=== PATIENT | male | born 1945 | race Caucasian/White ===

== ENCOUNTER → 2016-09-20 | Outpatient (CLI) | payer MEDICARE, BC ==
[~2016-09-20] MED LIST: ASPIRIN325 M1 PO; CARVEDILOL6.25 MG PO; CRESTOR5 MG PO; DIABETA5 M1 PO; IMDUR-ER30 MG PO; INSULIN PEN1 DIS.NDL; METFORMIN HCL500 M1 PO; PRINIVIL40 MG PO; TYLENOL PM EX-S1 TA4; VICODIN PO
--- NOTE | ~2016-09-20 | CR7 ---
[facility] A Service of [facility] & [facility] RADIOLOGY TEXT RESULTS PATIENT: AVI TAYLOR LOCATION: [facility] : 47 UNIT #: [id number] AGE: [address]: Vlad Davila MD SEX: M ORDER DR: [id number] [facility] [address] [place], [place] [address] [id number] O MR#: [id number] Acc #: [id number] NAME: AVI TAYLOR : 1945 SEX: M STUDY DATE/TIME: 09/20/2016 9:06 UNIT: [facility] ROOM: STUDY DESCRIPTION: CR Abdomen Single AP View Attending Physician: Vlad Davila M.D. Referring Physician: Vlad Davila M.D. Ordering Physician: Vlad Davila M.D. Primary Care Physician: Mulugeta Mederos M.D. MEDICAL IMAGING REPORT This report is preliminary unless electronic signature is present EXAM Abdomen INDICATIONS Evaluate kidney stones COMPARISON STUDY 05/31/2016 FINDINGS Supine view of the abdomen was obtained. There appears to be a faint 4-5 mm stone in the lower pole of the left kidney. It may be fragmented as compared with the prior study. I believe there are 2 faint stones seen in the right kidney measuring 4-5 mm in diameter. These appear similar to the 1 seen previously. There is some type of metal object attached to a thin wire superimposed upon the spine, which is unchanged from the prior study. The bowel gas pattern is normal. IMPRESSION There seem to be 2 faint stones measuring 5 mm or less in the right kidney that are probably stable from the prior study. On the left side, there is only 1 stone suggested in the lower pole and it may be fragmented as compared with the prior study. Clinical correlation is recommended. Dictated by... Jagdish Herzog M.D. THIS IS AN ELECTRONICALLY VERIFIED REPORT Jagdish Herzog M.D. at 09/21/2016 7:09 AM FEL/to TD: 09/20/2016 16:48 JOB #: [id number] [facility] A Service of [facility] & [facility] RADIOLOGY TEXT RESULTS PATIENT: AVI TAYLOR LOCATION: [facility] #: [id number] : [birth year] UNIT #: [id number] AGE: [address]: Vlad Davila MD SEX: M ORDER DR: MEDICAL IMAGING REPORT Page 1 of 1 COPY
== END | disposition home or self-care (01) ==
LOC: CRAD 08:55
DX: N20.0 Calculus of kidney (principal)
CPT/HCPCS: 74000